=== PATIENT | female | born 1970 | race Caucasian/White ===

== ENCOUNTER 2021-03-28 17:17 | Emergency (ER) | payer BC ==
[~2021-03-28] VITALS: Ht 162.6 cm; Wt 83.9 kg
[2021-03-28] MEDS ORDERED: QUIN10 PO (18:17)
== END 2021-03-28 19:35 | disposition home or self-care (01) ==
LOC: ER 17:17
DX: S91.312A Laceration without foreign body, left foot, initial encounter (principal); I10 Essential (primary) hypertension; Z91.048 Other nonmedicinal substance allergy status; W22.8XXA Striking against or struck by other objects, initial encounter
CPT/HCPCS: 12001; 73630; 96372-59; 99283-25; J1885

== ENCOUNTER 2023-10-26 17:02 | Emergency (ER) | payer BC ==
[~2023-10-26] VITALS: Ht 167.6 cm; Wt 86.2 kg
[~2023-10-26 17:02] MED LIST: QUIN10 PO
[2023-10-26] MEDS ORDERED: FentaNYL Citrate 50 MCG/ML 2 ML Injection IV ONE (17:15)
[2023-10-26] MEDS ORDERED: HYDROmorphone HCl/Pf 1MG SYR IV ONE (17:45)
[2023-10-26] MEDS ORDERED: NS 1,000 ML IV SCH (17:45)
[2023-10-26] MEDS ORDERED: RX Prepack 6 Tabs Oxycodone 5mg UD ONE (18:10)
[2023-10-26] MEDS ORDERED: Percocet 5-3251 EACH PO (18:16)
[2023-10-26 19:30] VITALS: BP 136/78
== END 2023-10-26 18:49 | disposition home or self-care (01) ==
LOC: ER 17:02
DX: T23.202A Burn of second degree of left hand, unspecified site, initial encounter (principal); T22.252A Burn of second degree of left shoulder, initial encounter; T22.112A Burn of first degree of left forearm, initial encounter; I10 Essential (primary) hypertension; F17.210 Nicotine dependence, cigarettes, uncomplicated; X10.2XXA Contact with fats and cooking oils, initial encounter; Y93.G3 Activity, cooking and baking; Z79.899 Other long term (current) drug therapy
CPT/HCPCS: 96374; 96375; 99283-25; A9270; J1170; J3010; J7030